=== PATIENT | female | born 1995 | race Caucasian/White ===

== ENCOUNTER 2022-06-01 08:52 | Day surgery (SDC) | payer OTHER, SELFPAY ==
--- NOTE | 2022-05-28 07:23 | EKG12_ITS ---
Test Reason : PREOP Blood Pressure : / mmHG Vent. Rate : 069 BPM Atrial Rate : 069 BPM P-R Int : 138 ms QRS Dur : 080 ms QT Int : 358 ms P-R-T Axes : 058 054 029 degrees QTc Int : 383 ms Normal sinus rhythm with sinus arrhythmia Normal ECG Confirmed by DEIDRA RANDHAWA, KEI ([id number]), research editor SHAWN MARTIN ([id number]) on 05/29/2022 7:40:22 AM Referred By: Yarelis Brandon Confirmed By:KEI GAY MD
[2022-05-28 08:23] LABS: Absolute Lymphocyte Count 1.87 X10^3/uL (0.83-4.51); Absolute Neutrophil Count 4.2 X10^3/uL (2.0-7.7); Basophil# 0.07 X10^3/uL; Eosinophil# 0.47 X10^3/uL; Eosinophils% 6.6 % (0-5); Hematocrit 40.8 % (37-47); Hemoglobin 13.2 g/dL (12.0-15.0); Lymphocyte # 1.87 X10^3/ul (0.83-4.51); Lymphocyte % 26.2 % (19-41); Mean Corp Hgb Conc 32.4 g/dL (32-36); Mean Corpuscular Hgb 27.2 pg (27.0-32.0); Mean Platelet Vol. 10.8 fl (6.2-12.0); Monocyte# 0.48 X10^3/uL; Monocyte% 6.7 % (0-10); NRBC Flagged by Analyzer 0 % (0-5); Neutrophil # 4.24 X10^3/uL (2.7-7.7); Neutrophil % 59.2 % (47-70); Platelet Count 422 K/mm3 (150-450); RBC Distribution Width CV 13.2 % (11.6-14.6); RBC Distribution Width SD 40.8 fl (35.1-43.9); Red Blood Count 4.86 M/mm3 (4.2-5.4); White Blood Count 7.2 K/mm3 (4.4-11.0)
[2022-05-28 08:34] LABS: Prothrombin Time (Protime)PT. 13.3 SECONDS (11.7-14.9)
[2022-05-28 08:35] LABS: Partial Thromboplast Time 30.7 Seconds (24.1-36.2)
[2022-05-28 08:52] LABS: Anion Gap 5 (5-15); BUN 11 mg/dL (7-18); BUN/Creat Ratio 13.5 RATIO (10-20); Calcium,Total 8.9 mg/dL (8.5-10.1); Chloride 108 mmol/L (98-107); Creatinine, Serum 0.82 mg/dL (0.55-1.02); EST Glomerular Filtration Rate 90 mL/min (>60); Est Glom Filt Rate - Afr Amer 109 mL/min (>60); Glucose 172 mg/dL (74-106); Potassium 4.2 mmol/L (3.5-5.1); Sodium Level 140 mmol/L (136-145)
[2022-05-28 08:59] LABS: AST(SGOT) 12 U/L (15-37); Alanine Aminotransfer ALT/SGPT 18 U/L (13-56); Albumin, Serum 3.1 g/dL (3.2-5.0); Alkaline Phosphatase 80 U/L (45-117); Bilirubin, Direct 0.05 mg/dL (0.00-0.30); Globulin 3.8 g/dL (2.2-4.2); Protein, Total 6.9 g/dL (6.4-8.2); Thyroid Stim Hormone (TSH) 3.92 uIU/mL (0.358-3.74)
[2022-05-28 09:05] LABS: Hemoglobin A1c 7.5 % (3.8-5.6)
[2022-06-01] VITALS (7 sets, daily range): BP systolic 70–133; BP diastolic 44–87; PULSE 71–115; RESP 16–18; TEMP 36.4–37.2; O2SAT 96–100; BMI 33.7
[2022-06-01 09:27] LABS: Internal QC Validated? YES +Cl - CLEAR BKGD; Pregnancy, Urine Negative Negative
[2022-06-01] MEDS: Lactated Ringers 1,000 ML 15 ML IV ×2 (09:30→12:29)
[2022-06-01 09:50] LABS: Bedside Glucose 115 mg/dL (74-106)
--- NOTE | 2022-06-01 10:50 | FALS_PTH ---
PATIENT: JUN WILLARD LOC: [facility] [place] U#:[id number] AGE/SX: 26/F ROOM: RE06/01/[address]: Dr. Yarelis Brandon, MDDOB: 1995 BED: DIS: 06/01/2022 SPEC #: [id number] RECD: 06/01/22 12:22 STATUS: IVANNA SHREYAS #: [id number] KANDACE: 06/01/22 10:[address]: Yarelis Brandon DEPT: SURGICAL PATHOLOGY RECD BY: Lacey Garber ENTERED: 06/01/22 12:50 SP TYPE: FALL TUBES OTHR DR: Dr. Mallory Back MD No Primary Care Phys Tissues: Fallopian tube Procedures: Surgery Specimen Level II Surgery Specimen Level IV HEADER OPERATION: Laparoscopic salpingectomy PRE-OP DIAGNOSIS: Desires tubal sterilization TISSUE SUBMITTED: Bilateral fallopian tubes MICROSCOPIC DIAGNOSIS Right and left fallopian tubes, bilateral salpingectomies: Complete cross-sections of benign fallopian tubes. Benign paratubal cyst of one fallopian tube. AM:apoorva 06/05/2022 MICROSCOPIC DESCRIPTION Slides are reviewed. GROSS DESCRIPTION Received in fixative is one container labeled with the patient's name and designated bilateral fallopian tubes. The specimen consists of bilateral fallopian tubes including fimbrial ends measuring 6 cm in length and 0.5 cm in diameter and 4.5 cm in length and 0.5 cm in diameter. One of the fallopian tubes also show a paratubal cyst measuring 1 cm in greatest dimension. A detached segment of fallopian tube is also noted measuring 1 cm in length and 0.5 cm in diameter. The fallopian tubes are not identified as right or left. Sections reveal unremarkable cut surfaces. Net Developer Architect sections are submitted in two cassettes as follows: 1 ? one fallopian tube, 2 ? second fallopian tube, paratubal cyst and detached segment of fallopian tube. / SJ:apoorva 06/01/2022 TC:1 CPT: 39712, 23457
[2022-06-01] MEDS: Bupivacaine 0.25% 30 ML Vial (11:27)
--- NOTE | 2022-06-01 11:51 | PCM.OPRPT ---
Report of Operation Date of Procedure: 06/01/22 Pre-Operative Diagnosis: desires sterilization Post-Operative Diagnosis: samel Surgery/Procedure Performed:: Laparoscopic Bilateral salpingectomy Description of Surgical Findings:: Normal Tubes, ovaries and Uterus. Surgeon: Yarelis Brandon geothermal operations manager: krishna [id number] Type of Anesthesia: General and Local Special Medications: .25% marcaine Specimen's removed: bilateral fallopian tubes Estimated Blood Loss (mL): <5cc Fluids Replaced: 1000 Description of Procedure: After informed consent was obtained patient was taken to the operating room she was placed in supine position she was given anesthesia. She was then placed in the [facility] stirrups and she was prepped and draped in normal sterile fashion. Bladder was drained prior to the start of procedure. At this time attention was turned to the vaginal portion where weighted speculum placed at posterior fornix vagina single-tooth tenaculum was used to gently grasp the internal the cervix. uterus was gently sounded to approximately 7 cm. Uterine manipulator was placed without difficulty. Legs then placed in parallel with the abdomen the tenaculum and the weighted speculum were removed. 2 towel clamps were placed at level of umbilicus. Marcaine was injected infraumbilical and a small incision was made. The 5 mm trocar was placed under direct visualization. CO2 gas was used to insufflate the intra-abdominal cavity. Upon inspection no gross abnormalities appreciated- the uterus tubes and ovaries appeared to be normal. At this time then the LLQ and RLQ ports were placed First Marcaine was injected and small incision was made a knife and the 5 mm trocars were placed. At this time then tubes were traced back to the fimbriated ends. Enseal was used to coagulate and ligate along mesosalpinx bilaterally until tubes removed completely. Good hemostasis was appreciated. At this time procedure was deemed complete successful. The gas was desufflated on from the intra-abdominal cavity. The trochars were removed. Skin was closed using 4-0 Monocryl in a subcutaneous fashion. Dermabond glue was placed. Instrument lap and needle counts were correct ?2. The uterine manipulator was removed. Vaginal sweep was performed it was negative. There were no complications anticipated normal postoperative course for this patient. Grafts/Implants Used: none Procedure Start Time: 10:27 Procedure Stop Time: 10:52 Complications none Admit VTE Documentation VTE Present on Admission: Yes VTE Mechan Device Prophylaxis: SCD's VTE Pharm Prophylaxis ordered?: No Reason prophylaxis not ordered:: Procedure Not Indicated
--- NOTE | 2022-06-01 11:55 | EX.PCM.DISCH ---
Discharge Instructions Procedure Other Diet Discharge Diet: No restrictions Activity May resume sexual activity in: 2 weeks Lifting Restrictions: 20-25 lbs Dressing / Incision Call your doctor if your incision/area has: Continuous Slow Oozing, Sudden Increased Bleeding, Increased Pain/ Swelling, Increased Redness, Foul Smelling Discharge and Swelling at the incision site Call your doctor if you observe: Fever of 101 or Higher, Inability to urinate, Inability to have a bowel movement, Using more than 1 pad per hour and Uncontrolled pain Additional Dressing/Incision Instructions:: You have skin glue over your incision sites, do not pick off. You may shower and let the soap and water run over the incision sites and dab dry. Follow Up Care Please Follow Up With: Yarelis Brandon MD When: 1-2 weeks post OP if you need an appointment please call [phone] Test Results: Test results from this visit will be discussed in further detail at your follow-up appointment, if applicable. Discharge Plan Admission Attending Provider: Yarelis Brandon Primary Care Provider: Care PhysicianMagalis Primary Consulting Providers: Mallory Back Discharge Orders/Prescriptions Prescriptions: No Action (DME) MiniMed Syringe [place] 3 mL 3 mL misc See Dose Instructions .ROUTE .MEDSUPPLY Qty: 30 3RF Dose Instruction: As directed Rx Instructions: As directed with insulin pump change x 3days fluticasone propionate [Flonase Allergy Relief] 50 mcg/actuation Louise,Suspension 1 spray INTRANASAL PRN PRN (Reason: ALLERGIES) Rx Instructions: administer into each nostril cholecalciferol (vitamin D3) [Vitamin D3] 10 mcg (400 unit) Tablet,Chewable 10 mcg PO DAILY levothyroxine 75 mcg Capsule 75 mcg PO QHS insulin lispro [Humalog U-100 Insulin] 100 unit/mL solution See Rx Instructions SC QDAY Qty: 100 4RF Dose Instruction: uses up to 111U qd via pump SC QDAY; give within 15min before/up to immediately after lunch Rx Instructions: uses up to U qd via pump SC QDAY (DME) Contour Next Test Strips strip See Dose Instructions .ROUTE .MEDSUPPLY Qty: 900 3RF Dose Instruction: As directed Rx Instructions: use to check BG 10 x qd Referrals / Follow Up: Care Physician,No Primary [Primary Care Provider] - Disposition Disposition (needs filled in before D/C Order can be placed): Home, Self Care
[2022-06-01] MEDS: Albuterol 2.5 MG/3 ML VIAL.NEB. INHALATION (12:10)
[2022-06-01 12:45] LABS: Bedside Glucose 208 mg/dL (74-106)
[2022-06-01] MEDS: HYDROcodone Bitartrate/Apap 5/325 Tablet PO (13:25)
== END 2022-06-01 13:41 | disposition home or self-care (01) ==
LOC: SDC 08:58 → AC 08:59
PROVIDERS: Anesthesiology; Referring Provider Obstetrics & Gynecology; Visit Provider Obstetrics & Gynecology
PROC: (CPT 58661; principal; 2022-06-01 10:35)
DX: Z30.2 Encounter for sterilization (principal); Z79.4 Long term (current) use of insulin; E10.9 Type 1 diabetes mellitus without complications; N83.8 Other noninflammatory disorders of ovary, fallopian tube and broad ligament; E07.9 Disorder of thyroid, unspecified; Z79.899 Other long term (current) drug therapy
CPT/HCPCS: 58661; 00840; 36415; 80048; 80076; 81025; 82962; 83036; 84443; 85025; 85610; 85730; 88302; 88305; 93005; 94640; J7120; C1760; J2405